=== PATIENT | male | born 1975 | race Two or more races ===

== ENCOUNTER → 2016-08-12 | Outpatient (CLI) | payer MEDICARE, MEDICAID | END | disposition home or self-care (01) | LOC: Rad HDHVI 09:10 | PROVIDERS: ATTEND Internal Medicine Cardiovascular Disease | DX: M51.37 Other intervertebral disc degeneration, lumbosacral region (principal); M47.897 Other spondylosis, lumbosacral region; M43.17 Spondylolisthesis, lumbosacral region | CPT/HCPCS: 72110 ==

== ENCOUNTER 2022-03-20 04:16 | Inpatient (IN) | payer OTHER, MEDICAID ==
[~2022-03-20] VITALS: Ht 185.4 cm; Wt 140.0 kg
[2022-03-20] MEDS ORDERED: OXYCODONE W/ ACETAMINOPHEN 5/325MG TABLET ONE (04:47)
[2022-03-20] MEDS ORDERED: OXYCODONE W/ ACETAMINOPHEN 5/325MG TABLET PO ONE (05:00)
[2022-03-20 05:27] LABS: Basophils # (auto) 0 10 ^3/uL (0-0.2); Basophils % (auto) 0.5 % (0.0-2.0); Eosinophils # (auto) 0.1 10 ^3/uL (0-0.8); Eosinophils % (auto) 0.9 % (0.0-7.0); Hematocrit 44.1 % (41.0-53.0); Hemoglobin 14.8 g/dL (13.5-17.5); Lymphocytes # (auto) 1.9 10 ^3/uL (0.4-5.4); Lymphocytes % (auto) 23.9 % (10.0-50.0); Mean Corpuscular Hgb Conc. 33.5 g/dL (32.0-36.0); Mean Corpuscular Volume 86.8 fL (80.0-100.0); Monocytes # (auto) 0.6 10 ^3/uL (0-1.3); Monocytes % (auto) 7.1 % (0.0-12.0); Neutrophils # (auto) 5.5 10 ^3/uL (1.6-8.6); Neutrophils % (auto) 67.6 % (37.0-80.0); Red Blood Cells 5.09 10^6/uL (4.5-5.90); Red Cell Distribution Width 13.4 % (11.8-14.3); White Blood Cell 8.1 10^3/uL (4.4-10.8)
[2022-03-20 05:44] LABS: Albumin 3.9 g/dL (3.4-5.0); Calcium 8.7 mg/dL (8.5-10.1); Potassium 4.1 mmol/L (3.5-5.1)
[2022-03-20 05:49] LABS: BUN/Creatinine Ratio 14.3; Bilirubin, Total 0.4 mg/dL (0.2-1.0)
[2022-03-20] MEDS ORDERED: SODIUM CHLORIDE 0.9% 1,000 ML IVB ONE (07:00)
[2022-03-20] MEDS ORDERED: SODIUM CHLORIDE 0.9% 1,000 ML IV ONE (07:00)
[2022-03-20] MEDS ORDERED: cloNIDine HCL 0.1 MG TAB PO ONE (07:30)
[2022-03-20] MEDS ORDERED: KETOROLAC TROMETH 30 MG/ML 1ML VIAL IV ONE ×2 (08:15→13:15)
[2022-03-20 10:25] LABS: Urine Bacteria NONE SEEN /hpf (None Seen); Urine Blood 3+ /uL (Negative); Urine WBC 6 /hpf (0 - 3)
[2022-03-20] MEDS ORDERED: ONDANSETRON HCL 4 MG/2 ML VIAL IV PRN (13:30)
[2022-03-20] MEDS ORDERED: DOCUSATE SOD 100 MG CAP PO PRN (13:30)
[2022-03-20] MEDS: SODIUM CHLORIDE 0.9% 1,000 ML IV SCH (16:20)
[2022-03-20] MEDS: KETOROLAC TROMETH 30 MG/ML 1ML VIAL IV PRN (19:09)
[2022-03-21] MEDS: MORPHINE SULFATE INJ 2 MG/ml SYRG IV PRN ×3 (02:14→16:31)
[2022-03-21 04:11] LABS: Basophils # (auto) 0 10 ^3/uL (0-0.2); Basophils % (auto) 0.4 % (0.0-2.0); Eosinophils # (auto) 0.1 10 ^3/uL (0-0.8); Eosinophils % (auto) 0.9 % (0.0-7.0); Hematocrit 41.4 % (41.0-53.0); Hemoglobin 13.9 g/dL (13.5-17.5); Mean Corpuscular Hemoglobin 29.1 pg (28.0-32.0); Mean Corpuscular Hgb Conc. 33.5 g/dL (32.0-36.0); Mean Corpuscular Volume 86.9 fL (80.0-100.0); Monocytes # (auto) 0.8 10 ^3/uL (0-1.3); Monocytes % (auto) 8.7 % (0.0-12.0); Neutrophils # (auto) 6.1 10 ^3/uL (1.6-8.6); Nucleated Red Blood Cells % 0.1 %; Red Blood Cells 4.76 10^6/uL (4.5-5.90); Red Cell Distribution Width 13.5 % (11.8-14.3); White Blood Cell 8.9 10^3/uL (4.4-10.8)
[2022-03-21 04:30] LABS: Potassium 3.8 mmol/L (3.5-5.1)
[2022-03-21 04:37] LABS: Albumin 3.1 g/dL (3.4-5.0); BUN/Creatinine Ratio 11.8; Calcium 8.1 mg/dL (8.5-10.1)
[2022-03-21 04:40] LABS: Bilirubin, Total 0.6 mg/dL (0.2-1.0); Total Protein 6.9 g/dL (6.4-8.2)
[2022-03-21] MEDS: SODIUM CHLORIDE 0.9% 1,000 ML IV SCH ×4 (06:10→15:55)
[2022-03-21] MEDS: KETOROLAC TROMETH 30 MG/ML 1ML VIAL IV PRN (07:35)
[2022-03-21] MEDS ORDERED: TAMSULOSIN HYDROCHLORIDE 0.4 MG CAP PO ONE (12:00)
[2022-03-21] MEDS ORDERED: cefTRIAXone 1GM/50ML D5W 50 ML IV ONE (12:00)
[2022-03-21] MEDS ORDERED: OMEP-263 PO (15:17)
[2022-03-21] MEDS ORDERED: LISI20TA28 PO (15:17)
[2022-03-21] MEDS ORDERED: TAMSULOSIN HYDROCHLORIDE 0.4 MG CAP PO SCH (18:00)
[2022-03-21] MEDS ORDERED: hydrALAZINE HCL 20 MG/ML VL IV PRN (18:30)
[2022-03-21] MEDS ORDERED: LISINOPRIL 20 MG TAB PO SCH (18:36)
[2022-03-21] MEDS ORDERED: KETOROLAC TROMETH 30 MG/ML 1ML VIAL IV ONE (19:15)
[2022-03-21 22:00] VITALS: BP 134/74
[2022-03-22 05:00] VITALS: BP 135/88
[2022-03-22] MEDS ORDERED: cefTRIAXone 1GM/50ML D5W 50 ML IV SCH (09:00)
[2022-03-22 09:07] VITALS: BP 144/89
[2022-03-22] MEDS ORDERED: LISINOPRIL 20 MG TAB PO SCH (10:00)
[2022-03-22] MEDS ORDERED: TRAM50TA2 PO (10:46)
[2022-03-22] MEDS ORDERED: TAM04C PO (10:46)
[2022-03-22] MEDS ORDERED: CIPR-173 PO (10:46)
[2022-03-22 13:18] VITALS: BP 158/95
== END 2022-03-22 14:30 | disposition home or self-care (01) | DRG 690 ==
LOC: ER 04:16 → OVERFLOW 13:27 → WEST WING 03-21 15:17
PROVIDERS: ADMIT Nurse Practitioner Family; ATTEND Nurse Practitioner Family
DX: N13.6 Pyonephrosis (principal); Z68.41 Body mass index [BMI] 40.0-44.9, adult; E66.9 Obesity, unspecified; G47.30 Sleep apnea, unspecified; I10 Essential (primary) hypertension; E86.0 Dehydration; Z20.822 Contact with and (suspected) exposure to COVID-19; Z87.891 Personal history of nicotine dependence
CPT/HCPCS: 36415; 74176; 80053; 81001; 85025; 87086; 87426; 96361; 96365; 96375; 96376; G0378; J0696; J1885

== ENCOUNTER 2022-07-11 08:10 | Inpatient (IN) | payer OTHER, MEDICAID ==
[~2022-07-11] VITALS: Ht 188 cm; Wt 143.1 kg
[~2022-07-11 08:10] MED LIST: CIPR-173 PO; LISI20TA28 PO; OMEP-263 PO; TAM04C PO; TRAM50TA2 PO
[2022-07-11] MEDS ORDERED: ONDANSETRON HCL 4 MG/2 ML VIAL IV ONE (09:15)
[2022-07-11] MEDS ORDERED: SODIUM CHLORIDE 0.9% 1,000 ML IV ONE ×2 (09:15→10:30)
[2022-07-11] MEDS ORDERED: KETOROLAC TROMETH 30 MG/ML 1ML VIAL IV ONE (09:15)
[2022-07-11 09:18] LABS: Calcium 8.8 mg/dL (8.5-10.1)
[2022-07-11 09:20] LABS: BUN/Creatinine Ratio 12.1
[2022-07-11 09:28] LABS: Basophils # (auto) 0.1 10 ^3/uL (0-0.2); Basophils % (auto) 0.9 % (0.0-2.0); Eosinophils # (auto) 0 10 ^3/uL (0-0.8); Eosinophils % (auto) 0.1 % (0.0-7.0); Hematocrit 43.8 % (41.0-53.0); Hemoglobin 14.3 g/dL (13.5-17.5); Lymphocytes # (auto) 0.8 10 ^3/uL (0.4-5.4); Lymphocytes % (auto) 7.5 % (10.0-50.0); Mean Corpuscular Hemoglobin 28.5 pg (28.0-32.0); Mean Corpuscular Hgb Conc. 32.7 g/dL (32.0-36.0); Mean Corpuscular Volume 87.2 fL (80.0-100.0); Monocytes # (auto) 0.4 10 ^3/uL (0-1.3); Monocytes % (auto) 4.4 % (0.0-12.0); Neutrophils # (auto) 8.9 10 ^3/uL (1.6-8.6); Neutrophils % (auto) 87.1 % (37.0-80.0); Nucleated Red Blood Cells % 0.1 %; Red Blood Cells 5.03 10^6/uL (4.5-5.90); Red Cell Distribution Width 13.9 % (11.8-14.3); White Blood Cell 10.2 10^3/uL (4.4-10.8)
[2022-07-11] MEDS ORDERED: TAMSULOSIN HYDROCHLORIDE 0.4 MG CAP PO ONE (10:30)
[2022-07-11 10:55] LABS: Urine Bacteria NONE SEEN /hpf (None Seen); Urine Blood Negative /uL (Negative); Urine Mucus FEW (None Seen); Urine WBC 2 /hpf (0 - 3)
[2022-07-11] MEDS ORDERED: ACETAMINOPHEN 325 MG TAB PO PRN (11:00)
[2022-07-11] MEDS ORDERED: DOCUSATE SOD 100 MG CAP PO PRN (11:00)
[2022-07-11] MEDS: SODIUM CHLORIDE 0.9% 1,000 ML IV SCH ×2 (11:00→21:43)
[2022-07-11] MEDS ORDERED: ONDANSETRON HCL 4 MG/2 ML VIAL IV PRN (11:00)
[2022-07-11] MEDS ORDERED: MORPHINE SULFATE INJ 2 MG/ml SYRG IV PRN (11:00)
[2022-07-11] MEDS ORDERED: MANNITOL FTV 25% 12.5 GM/50 ML 50 ML IV ONE (14:30)
[2022-07-11] MEDS: HYDROcodone-ACET 5/325MG TAB PO PRN (21:08)
[2022-07-11 23:43] VITALS: BP 117/65
[2022-07-12] VITALS (7 sets, daily range): BP systolic 114–134; BP diastolic 63–83
[2022-07-12 05:24] LABS: Basophils # (auto) 0 10 ^3/uL (0-0.2); Basophils % (auto) 0.6 % (0.0-2.0); Eosinophils # (auto) 0.1 10 ^3/uL (0-0.8); Eosinophils % (auto) 2.3 % (0.0-7.0); Hematocrit 37.6 % (41.0-53.0); Hemoglobin 12.9 g/dL (13.5-17.5); Lymphocytes # (auto) 2.4 10 ^3/uL (0.4-5.4); Lymphocytes % (auto) 43.2 % (10.0-50.0); Mean Corpuscular Hemoglobin 29.9 pg (28.0-32.0); Mean Corpuscular Hgb Conc. 34.2 g/dL (32.0-36.0); Mean Corpuscular Volume 87.5 fL (80.0-100.0); Monocytes # (auto) 0.5 10 ^3/uL (0-1.3); Neutrophils # (auto) 2.5 10 ^3/uL (1.6-8.6); Neutrophils % (auto) 44.9 % (37.0-80.0); Nucleated Red Blood Cells % 0.1 %; Red Blood Cells 4.29 10^6/uL (4.5-5.90); Red Cell Distribution Width 13.8 % (11.8-14.3); White Blood Cell 5.6 10^3/uL (4.4-10.8)
[2022-07-12 06:03] LABS: Albumin 2.9 g/dL (3.4-5.0); BUN/Creatinine Ratio 15.6; Bilirubin, Total 0.6 mg/dL (0.2-1.0); Calcium 8.2 mg/dL (8.5-10.1); Total Protein 6.5 g/dL (6.4-8.2)
[2022-07-12] MEDS: SODIUM CHLORIDE 0.9% 1,000 ML IV SCH ×2 (06:45→17:00)
[2022-07-12] MEDS: TAMSULOSIN HYDROCHLORIDE 0.4 MG CAP PO SCH (09:41)
[2022-07-12] MEDS: PANTOPRAZOLE 40 MG/10 ML VIAL INJ IV SCH (09:41)
[2022-07-12] MEDS: LISINOPRIL 20 MG TAB PO SCH (09:42)
[2022-07-12] MEDS: HYDROcodone-ACET 5/325MG TAB PO PRN (20:46)
[2022-07-12] MEDS ORDERED: MANNITOL FTV 25% 12.5 GM/50 ML 50 ML IV ONE (22:45)
[2022-07-13] MEDS: SODIUM CHLORIDE 0.9% 1,000 ML IV SCH ×3 (02:07→23:00)
[2022-07-13 05:00] VITALS: BP 128/78
[2022-07-13 07:43] LABS: INR 1.04 (0.9-1.15); Partial Thromboplastin Time 28.8 sec (24.6-33.4)
[2022-07-13 09:17] VITALS: BP 139/89
[2022-07-13] MEDS: TAMSULOSIN HYDROCHLORIDE 0.4 MG CAP PO SCH (09:44)
[2022-07-13] MEDS: LISINOPRIL 20 MG TAB PO SCH (09:45)
[2022-07-13] MEDS: PANTOPRAZOLE 40 MG/10 ML VIAL INJ IV SCH (09:46)
[2022-07-13] MEDS ORDERED: CIPROFLOXACIN 400MG/200ML 200 ML IV ONE (11:59)
[2022-07-13] MEDS ORDERED: MIDAZOLAM HCL 2MG/2ML 2ml VIAL (1mg/ml) ONE (12:10)
[2022-07-13] MEDS ORDERED: fentaNYL CITRATE 100 MCG/2 ML VL ONE (12:10)
[2022-07-13] MEDS ORDERED: PROPOFOL 10 MG/ML 20 ML IV ONE (13:46)
[2022-07-13 14:32] LABS: Hepatitis C Antibody Negative (Negative)
[2022-07-13] MEDS ORDERED: HYDROmorphone HCL 2 MG/ML VL/or syr IV PRN ×2 (15:15)
[2022-07-13] MEDS ORDERED: ONDANSETRON HCL 4 MG/2 ML VIAL IV PRN (15:15)
[2022-07-13 16:34] VITALS: BP 134/83
[2022-07-13 22:00] VITALS: BP 157/90
[2022-07-13] MEDS: HYDROcodone-ACET 5/325MG TAB PO PRN (22:34)
[2022-07-14 05:00] VITALS: BP 158/89
[2022-07-14 08:27] VITALS: BP 143/77
[2022-07-14] MEDS: SODIUM CHLORIDE 0.9% 1,000 ML IV SCH (09:00)
[2022-07-14] MEDS: TAMSULOSIN HYDROCHLORIDE 0.4 MG CAP PO SCH (10:12)
[2022-07-14] MEDS: LISINOPRIL 20 MG TAB PO SCH (10:12)
[2022-07-14] MEDS: PANTOPRAZOLE 40 MG/10 ML VIAL INJ IV SCH (10:13)
[2022-07-14 12:30] VITALS: BP 136/97
[2022-07-14] MEDS ORDERED: LEVO500T31 PO (12:38)
[2022-07-14 14:49] VITALS: BP 136/77
== END 2022-07-14 15:30 | disposition home or self-care (01) | DRG 694 ==
LOC: ER 08:12 → OVERFLOW 10:59 → WEST WING 22:59
PROVIDERS: ADMIT Nurse Practitioner Family; ATTEND Internal Medicine
PROC: 0TF7XZZ Fragmentation in Left Ureter, External Approach (ICD-10-PCS; principal; 2022-07-13 12:10)
DX: N13.2 Hydronephrosis with renal and ureteral calculous obstruction (principal); I10 Essential (primary) hypertension; F41.9 Anxiety disorder, unspecified; Z20.822 Contact with and (suspected) exposure to COVID-19; Z80.3 Family history of malignant neoplasm of breast; Z79.899 Other long term (current) drug therapy; Z82.49 Family history of ischemic heart disease and other diseases of the circulatory system; Z87.442 Personal history of urinary calculi
CPT/HCPCS: 36415; 74176; 80048; 80053; 81001; 85025; 85610; 85730; 86803; 86850; 86900; 86901; 87340; 87426; 94660; 96361; 96365; 96375; C9113; G0378; J1885; J2250; J2405; J2704

== ENCOUNTER 2024-04-22 13:22 | Inpatient (IN) | payer OTHER, MEDICAID ==
[~2024-04-22] VITALS: Ht 182.9 cm; Wt 136.5 kg
[~2024-04-22 13:22] MED LIST changes: -CIPR-173 PO; +LEVO500T31 PO; -LISI20TA28 PO; +LISI20TA56 PO; -OMEP-263 PO; +OMEP-448 PO; -TAM04C PO; +TAMS-35 PO
--- NOTE | 2024-04-22 13:39 | ED.PDOC ---
History of Present Illness HPI Comments 48M presents to the ER w/ no prior Hx associated to the c/c of dizziness. Pt reports that he has been very lightheaded or dizzy for the past 2 months and it has been worsening for the past week. Pt reports that earlier today the pt felt dizzy for about 15 seconds and he felt the room spinning. PMHx of HTN. Denies chills, fever, N/V/D, SOB, Dizziness now or other associated symptom's, modifiers, or recent injuries or sick contact at this time. Chief Complaint: Dizziness Time Seen by MD: 13:30 Primary Care Provider: VANESSA Reviewed Notes: Nurses Notes, Medications, Allergies Allergies: Coded Allergies: NO KNOWN ALLERGIES (Unverified , 05/11/13) Home Meds Active Scripts Levofloxacin (Levaquin) 500 Mg Tab, 500 MG PO DAILY, #7 TAB Prov:FERNANDO GOLDEN MD 07/14/22 Tamsulosin Hcl (Flomax) 0.4 Mg Cap, 1 CAP PO DAILY PRN for 15 Days, #30 CAP 11 Refills Prov:CAESAR YODER MD 03/22/22 Tramadol Hcl (Tramadol Hcl) 50 Mg Tab, 50 MG PO TID PRN, #30 TAB Prov:CAESAR YODER MD 03/22/22 Reported Medications Lisinopril (Lisinopril) 20 Mg Tab, 1 TAB PO DAILY 03/21/22 Omeprazole (Omeprazole Dr) 40 Mg Cap, 1 CAP PO DAILY 03/21/22 Information Source: Patient Mode of Arrival: Ambulatory Severity: Moderate Timing: Days Duration: Since onset, Days Prehospital treatment: None Past Medical History PAST MEDICAL HISTORY: HTN Surgical History: Denies all surgeries Family History Family History: Reviewed,noncontributory to illness, Unknown Social History Smoker: Non-Smoker Alcohol: Denies ETOH Use Drugs: Denies Drug Use Lives In: Home Constitutional: denies: chills, diaphoresis, fatigue, fever, malaise, sweats, weakness, others EENTM: denies: blurred vision, double vision, ear bleeding, ear discharge, ear drainage, ear pain, ear ringing, eye pain, eye redness, hearing loss, mouth pain, mouth swelling, nasal discharge, nose bleeding, nose congestion, nose pain, photophobia, tearing, throat pain, throat swelling, voice changes, others Respiratory: denies: cough, hemoptysis, orthopnea, SOB at rest, shortness of breath, SOB with excertion, stridor, wheezing, others Cardiovascular: denies: chest pain, dizzy spells, diaphoresis, Dyspnea on exertion, edema, irregular heart beat, left arm pain, lightheadedness, palpitations, PND, syncope, others Gastrointestinal: denies: abdomen distended, abdominal pain, blood streaked bowels, constipated, diarrhea, dysphagia, difficulty swallowing, hematemesis, melena, nausea, poor appetite, poor fluid intake, rectal bleeding, rectal pain, vomiting, others Genitourinary: denies: burning, dysuria, flank pain, frequency, hematuria, incontinence, penile discharge, penile sore, pain, testicle pain, testicle swelling, urgency, others Neurological: reports: dizziness; denies: fainting, headache, left sided numbness, left sided weakness, numbness, paresthesia, pre-existing deficit, right sided numbness, right sided weakness, seizure, speech problems, tingling, tremors, weakness, others Musculoskeletal: denies: back pain, gout, joint pain, joint swelling, muscle pain, muscle stiffness, neck pain, others Integumetry: denies: bruises, change in color, change in hair/nails, dryness, laceration, lesions, lumps, rash, wounds, others Allergic/Immunocompromised: denies: Difficulty Healing, Frequent Infections, Hives, Itching, others Hematologic/Lymphatic: denies: anemia, blood clots, easy bleeding, easy bruising, swollen glands, others Endocrine: denies: excessive hunger, excessive sweating, excessive thirst, excessive urination, flushing, intolerance to cold, intolerance to heat, unexplained weight gain, unexplained weight loss, others Psychiatric: denies: anxiety, bipolar disorder, depression, hopeless, panic disorder, schizophrenia, sleepless, suicidal, others All Other Systems: Reviewed and Negative Physical Exam Exam Comments Heart and Lungs are normal and the pt is mildly anxious General Appearance: No Apparent Distress, Normal HEENT: Normal ENT Inspection, Pharynx Normal, TMs Normal Neck: Full Range of Motion, Non-Tender, Normal, Normal Inspection Respiratory: Chest Non-Tender, Lungs Clear, No Accessory Muscle Use, No Respiratory Distress, Normal Breath Sounds Cardiovascular: No Edema, No JVD, No Murmur, No Gallop, Normal Peripheral Pulses, Regular Rate/Rhythm Breast Exam: Deferred Gastrointestinal: No Organomegaly, Non Tender, No Pulsatile Mass, Normal Bowel Sounds, Soft Genitalia: Deferred Pelvic: Deferred Rectal: Deferred Extremities: No calf tenderness, Normal capillary refill, Normal inspection, Normal range of motion, Non-tender, No pedal edema Musculoskeletal : Apperance: Normal Neurologic: Alert, steamer gum candy II-XII nml as Tested, No Motor Deficits, Normal Affect, Normal Mood, No Sensory Deficits Cerebellar Function: Normal Reflexes: Normal Skin: Dry, Normal Color, Warm Lymphatic: No Adenopathy Was a procedure done? Was a procedure done?: No Differential Dx Considerations may include: pvc, pac, afib, aflutter, heart block, sinus arrhythmias, electrolyte disorders, anxiety X-Ray, Labs, Meds, VS Vital Signs Date Time Temp Pulse Resp B/P (MAP) Pulse Ox O2 Delivery O2 Flow Rate FiO2 04/22/24 15:20 98.1 60 18 133/81 (98) 97 98.1 04/22/24 15:20 67 18 97 Room Air* 0 21 04/22/24 13:33 72 04/22/24 13:32 97.9 70 18 137/99 (112) 97 Lab Test 04/22/24 14:47 04/22/24 13:50 04/22/24 13:27 Range/Units Troponin I High Sensitivity 4 3 L </=54 ng/L White Blood Count 6.8 4.4-10.8 10^3/uL Red Blood Count 5.42 4.5-5.90 10^6/uL Hemoglobin 15.7 13.5-17.5 g/dL Hematocrit 47.2 41.0-53.0 % Mean Corpuscular Volume 87.1 80.0-100.0 fL Mean Corpuscular Hemoglobin 29.0 28.0-32.0 pg Mean Corpuscular Hemoglobin Concent 33.3 32.0-36.0 g/dL Red Cell Distribution Width 13.2 11.8-14.3 % Platelet Count 224 140-450 10^3/uL Mean Platelet Volume 8.6 6.9-10.8 fL Neutrophils (%) (Auto) 51.0 37.0-80.0 % Lymphocytes (%) (Auto) 38.8 10.0-50.0 % Monocytes (%) (Auto) 8.2 0.0-12.0 % Eosinophils (%) (Auto) 1.4 0.0-7.0 % Basophils (%) (Auto) 0.6 0.0-2.0 % Neutrophils # (Auto) 3.5 1.6-8.6 10 ^3/uL Lymphocytes # (Auto) 2.6 0.4-5.4 10 ^3/uL Monocytes # (Auto) 0.6 0-1.3 10 ^3/uL Eosinophils # (Auto) 0.1 0-0.8 10 ^3/uL Basophils # (Auto) 0 0-0.2 10 ^3/uL Nucleated Red Blood Cells 0.1 % Sodium Level 138 136-145 mmol/L Potassium Level 4.3 3.5-5.1 mmol/L Chloride Level 104 98-107 mmol/L Carbon Dioxide Level 26 20-31 mmol/L Anion Gap 8 5-15 Blood Urea Nitrogen 17 9-23 mg/dL Creatinine 1.04 0.700-1.30 mg/dL Glomerular Filtration Rate Calc 89 >90 mL/min BUN/Creatinine Ratio 16.3 10.0-20.0 Serum Glucose 88 74-106 mg/dL Calcium Level 10.2 8.7-10.4 mg/dL POC Glucose 99 70-106 mg/dl Time of 1ST Reevaluation: 14:00 Reevaluation 1ST: Unchanged (cardiac rhythm-nsr) Time of 2ND Reevaluation: 15:00 Reevaluation 2ND: Unchanged (cardiac rhythm, nsr) Patient Education/Counseling: Diagnosis, Treatment, Prognosis, Need For Follow Up Family Education/Counseling: No Family Present Additional Information - I reviewed the following notes from patient's past medical encounters:07/11/23 - The following tests were ordered, and results were reviewed by me: Labs, EKG, XY - Additional information was gathered from interviewing the following independent Historian: (Family, Other Providers, EMT) - I reviewed and agreed with the following test results read by other provider: X-ray - I discussed treatments and results with medical personnel and consultants pt reports symptoms of palpitations with lightheadedness. although we have not captured any arrhythmias, he may be having intermittent arrhythmias. i will admit him to be placed on laboratory monitor in order to capture any arrhythmias that may be causing his symptoms Departure 1 Departure Time of Disposition: 15:02 Impression: Primary Impression: Palpitations Additional Impression: Dizziness Disposition: 09 ADMITTED INPATIENT Admit to: Tele Condition: Stable Critical Care Note Critical Care Time?: No Stability Stability form required: No Heart Score Heart Score: Heart Score Response (Comments) Value History Slightly Suspicious 0 EKG Normal 0 Age 45-64 1 Risk Factors 1 or 2 risk factors 1 Troponin Normal limit 0 Total 2 I personally scribed for ANDREY ZAVALA MD ([email or web address]) on 04/22/24 at 13:39. Electronically submitted by Leonides Peralta ([email or web address]). ANDREY ZAVALA MD Apr 22, 2024 13:39
[2024-04-22 14:19] LABS: Basophils # (auto) 0 10 ^3/uL (0-0.2); Basophils % (auto) 0.6 % (0.0-2.0); Eosinophils # (auto) 0.1 10 ^3/uL (0-0.8); Eosinophils % (auto) 1.4 % (0.0-7.0); Hematocrit 47.2 % (41.0-53.0); Hemoglobin 15.7 g/dL (13.5-17.5); Lymphocytes # (auto) 2.6 10 ^3/uL (0.4-5.4); Lymphocytes % (auto) 38.8 % (10.0-50.0); Mean Corpuscular Hgb Conc. 33.3 g/dL (32.0-36.0); Mean Corpuscular Volume 87.1 fL (80.0-100.0); Monocytes # (auto) 0.6 10 ^3/uL (0-1.3); Monocytes % (auto) 8.2 % (0.0-12.0); Neutrophils # (auto) 3.5 10 ^3/uL (1.6-8.6); Nucleated Red Blood Cells % 0.1 %; Platelet Count (auto) 224 10^3/uL (140-450); Red Blood Cells 5.42 10^6/uL (4.5-5.90); Red Cell Distribution Width 13.2 % (11.8-14.3); White Blood Cell 6.8 10^3/uL (4.4-10.8)
[2024-04-22 14:25] LABS: Chloride 104 mmol/L (98-107); Potassium 4.3 mmol/L (3.5-5.1); Sodium 138 mmol/L (136-145)
[2024-04-22 14:26] LABS: Anion Gap 8 (5-15); Carbon Dioxide 26 mmol/L (20-31)
[2024-04-22 14:27] LABS: Calcium 10.2 mg/dL (8.7-10.4)
--- NOTE | 2024-04-22 14:30 | DVH ---
CHEST RADIOGRAPH Indication: palpitations Technique: Single frontal view of the chest was obtained Comparison: None FINDINGS: Lines and Tubes: None Lungs: No focal consolidation. Pleura: No effusion. No pneumothorax. Cardiomediastinal contours: Unremarkable Bones: No acute osseous abnormality. IMPRESSION: No acute cardiopulmonary disease.
[2024-04-22 14:31] LABS: Glucose 88 mg/dL (74-106)
[2024-04-22 14:32] LABS: BUN/Creatinine Ratio 16.3 (10.0-20.0); Blood Urea Nitrogen 17 mg/dL (9-23)
[2024-04-22 15:20] VITALS: PULSE 67; RESP 18; O2SAT 97
[2024-04-22] MEDS ORDERED: MORPHINE SULFATE INJ 2 MG/ml SYRG IV PRN (18:30)
[2024-04-22] MEDS ORDERED: ONDANSETRON HCL 4 MG/2 ML VIAL IV PRN (18:30)
[2024-04-22] MEDS ORDERED: DOCUSATE SOD 100 MG CAP PO PRN (18:30)
[2024-04-22] MEDS ORDERED: TEMAZEPAM 15 MG CAP PO PRN (18:30)
[2024-04-22] MEDS ORDERED: ACETAMINOPHEN 325 MG TAB PO PRN (18:30)
[2024-04-22] MEDS ORDERED: HYDROcodone-ACET 5/325MG TAB PO PRN (18:30)
[2024-04-22] MEDS ORDERED: LORazepam 0.5 MG TAB PO PRN (18:30)
[2024-04-22] MEDS ORDERED: MECLIZINE HCL 25 MG TAB PO PRN (18:30)
[2024-04-22] MEDS ORDERED: MAALOX PLUS or MAALOX 30 ML PO PRN (18:30)
[2024-04-22] MEDS ORDERED: hydrALAZINE HCL 10 MG TAB PO PRN (18:45)
--- NOTE | 2024-04-22 18:51 | DVHHP2 ---
History of Present Illness Reason for Visit: dizziness History of Present Illness 48-year-old massively morbidly obese male comes to the ED for complaints of dizziness patient states for 2 months he has been having worsening and dizziness in the last week has been even worse patient states that he has episodes of dizziness that lasts for about anywhere from 15-30 seconds that include an intense spinning sensation patient's only other past medical history is hypertension and which he takes lisinopril for managing previously took lisinopril for managing the ED recommended that the patient be for admission and continued evaluation at this point in time 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 Dyspnea, Edema, Lt Headedness, Other Gastrointestinal: No: Nausea, Vomiting, Abdominal Pain, Diarrhea, Constipation, Melena, Hematochezia, Other Genitourinary: No Dysuria, No Frequency, No Incontinence, No Hematuria, No Retention, No Other Musculoskeletal: No: other, neck pain, shoulder pain, arm pain, back pain, hand pain, leg pain, foot pain Skin: No: Rash, Lesions, Jaundice, Bruising, Other Neurological: Weakness, Incoordination; No: Numbness, Change in speech, Confusion, Seizures, Other Allergies: Coded Allergies: NO KNOWN ALLERGIES (Unverified , 05/11/13) Exam Vital Signs Vital Signs Date Time Temp Pulse Resp B/P (MAP) Pulse Ox O2 Delivery O2 Flow Rate FiO2 04/22/24 15:20 98.1 60 18 133/81 (98) 97 98.1 04/22/24 15:20 Room Air* 0 21 General Appearance: Oriented X3, mild distress HEENT: Atraumatic, PERRLA, EOMI Respiratory: Clear to auscultation, Normal air movement Cardiovascular: Regular rate, Normal S1 Abdominal: Normal bowel sounds, Soft Extremities: No clubbing, No cyanosis Skin: No rashes, No breakdown Neuro: Normal gait, Normal speech Psych/Mental Status: Mood NL Labs/Xrays Labs Test 04/22/24 14:47 04/22/24 13:50 04/22/24 13:27 Range/Units Troponin I High Sensitivity 4 </=54 ng/L White Blood Count 6.8 4.4-10.8 10^3/uL Red Blood Count 5.42 4.5-5.90 10^6/uL Hemoglobin 15.7 13.5-17.5 g/dL Hematocrit 47.2 41.0-53.0 % Mean Corpuscular Volume 87.1 80.0-100.0 fL Mean Corpuscular Hemoglobin 29.0 28.0-32.0 pg Mean Corpuscular Hemoglobin Concent 33.3 32.0-36.0 g/dL Red Cell Distribution Width 13.2 11.8-14.3 % Platelet Count 224 140-450 10^3/uL Mean Platelet Volume 8.6 6.9-10.8 fL Neutrophils (%) (Auto) 51.0 37.0-80.0 % Lymphocytes (%) (Auto) 38.8 10.0-50.0 % Monocytes (%) (Auto) 8.2 0.0-12.0 % Eosinophils (%) (Auto) 1.4 0.0-7.0 % Basophils (%) (Auto) 0.6 0.0-2.0 % Neutrophils # (Auto) 3.5 1.6-8.6 10 ^3/uL Lymphocytes # (Auto) 2.6 0.4-5.4 10 ^3/uL Monocytes # (Auto) 0.6 0-1.3 10 ^3/uL Eosinophils # (Auto) 0.1 0-0.8 10 ^3/uL Basophils # (Auto) 0 0-0.2 10 ^3/uL Nucleated Red Blood Cells 0.1 % Sodium Level 138 136-145 mmol/L Potassium Level 4.3 3.5-5.1 mmol/L Chloride Level 104 98-107 mmol/L Carbon Dioxide Level 26 20-31 mmol/L Anion Gap 8 5-15 Blood Urea Nitrogen 17 9-23 mg/dL Creatinine 1.04 0.700-1.30 mg/dL Glomerular Filtration Rate Calc 89 >90 mL/min BUN/Creatinine Ratio 16.3 10.0-20.0 Serum Glucose 88 74-106 mg/dL Calcium Level 10.2 8.7-10.4 mg/dL POC Glucose 99 70-106 mg/dl Assessment/Plan Assessment/Plan Admit to [facility] Intermittent dizziness rule out BPPV Versus acute cranial abnormality Labs evaluated normal Vitals within normal limits Recommended for admission further evaluation by the ED History of hypertension monitor blood pressure closely Continue with blood pressure medications P.r.n. BP medications if blood pressure believes higher than 160 systolic Plan discussed with: Patient My Orders Orders - MOON FENTON MD Procedure Category Date Status Time Head Without Contrast CT 04/22/24 Logged 18:29 Urinalysis LAB 04/22/24 Logged 18:29 Drug Screen LAB 04/22/24 Logged 18:29 Admit ADMIT 04/22/24 Transmitted 18:29 Code Status CODE 04/22/24 Transmitted 18:29 Vital Signs [facility] 04/22/24 In Process 18:29 Review Orders With DAILY 04/22/24 In Process Adm. 18:29 Regular Diet DIET 04/22/24 Transmitted Dinner Sodium Chloride 0.9% PHA 04/22/24 Logged 18:30 Lorazepam Tablet PHA 04/22/24 Logged (Ativan Tablet) 18:30 Alum & Mag PHA 04/22/24 Logged Hydrox-Simethicone 18:30 Docusate Sodium PHA 04/22/24 Logged Capsule (Colace 18:30 Acetaminophen Tablet PHA 04/22/24 Logged (Tylenol Tablet) 18:30 Temazepam (Restoril) PHA 04/22/24 Logged 18:30 Notify Md Of Changes [facility] 04/22/24 In Process From Base 18:29 Advance Directive [facility] 04/22/24 In Process 18:29 Basic Metabolic Panel LAB 04/23/24 Verified 04:00 Complete Blood Count LAB 04/23/24 Verified 04:00 Patient Condition ORDERS 04/22/24 Transmitted 18:29 Allergies [facility] 04/22/24 In Process 18:29 Hydrocodone-Acet PHA 04/22/24 Logged 5/325mg Tab ([place] 18:30 Ondansetron Hcl PHA 04/22/24 Logged (Zofran) 18:30 Morphine Sulfate PHA 04/22/24 Logged Injection 18:30 Notify Of Changes [facility] 04/22/24 In Process From Base 18:29 Oxygen By Nasal RT 04/22/24 Transmitted Cannula 18:29 Meclizine Tablet PHA 04/22/24 Logged (Antivert Tablet) 18:30 Hydralazine Hcl PHA 04/22/24 Logged Tablet (Apresoline 18:45 Lisinopril Tablet PHA 04/23/24 Logged (Zestril Tablet) 10:00 Problem List: (1) Dizziness (2) Palpitations (3) Essential hypertension Date of Service: Apr 22, 2024 Billing Provider: MOON FENTON MD Common Visit Codes: [id number] INP/OBS CARE (HIGH) MOON FENTON MD Apr 22, 2024 18:51
--- NOTE | 2024-04-22 20:07 | DVH ---
EXAM: CT HEAD WITHOUT CONTRAST INDICATION: dizziness TECHNIQUE: CT of the head without intravenous contrast. Radiation Dose Information: CT Dose: CTDI volume is 63.2 mGy. Dose-length product is 1139.31 mGy*cm The dose indicators for CT are the volume Computed Tomography (CT) Dose Index (CTDIvol) and the Dose Length Product (DLP), and are measured in units of mGy and mGy-cm, respectively. These indicators are not patient dose, but values generated from the CT scanner acquisition factors. The report includes radiation exposure data for exposures received during this examination. COMPARISON: CT ABD PELVIS WO CONTRAST on DOS: 07/11/22, CT ABD PELVIS WO CONTRAST on DOS: 03/20/22 FINDINGS: There is no evidence of acute intracranial hemorrhage, extra-axial collection, mass effect, midline s hift, herniation or hydrocephalus. The ventricles, sulci and cisterns are age appropriate. The bennett-white differentiation is intact. Patchy periventricular and subcortical white matter hypoattenuation is nonspecific but may be related to small vessel ischemic disease. The visualized paranasal sinuses and mastoid air cells are clear. The surrounding soft tissues and osseous structures are unremarkable. IMPRESSION: 1. NO ACUTE INTRACRANIAL HEMORRHAGE. 2. NO CT FINDINGS OF TERRITORIAL ISCHEMIA
[2024-04-22 22:34] VITALS: BP 120/76; PULSE 73; RESP 20; TEMP 97.6; O2SAT 95
[2024-04-22] MEDS: SODIUM CHLORIDE 0.9% 1,000 ML IV SCH (23:37)
[2024-04-23 01:30] VITALS: PULSE 87; RESP 18; O2SAT 96
[2024-04-23 05:02] LABS: Urine Bacteria None Seen /hpf (None Seen)
[2024-04-23 05:22] LABS: Amphetamine Screen, Urine Neg (NEGATIVE)
[2024-04-23 05:23] LABS: Cannabinoid Screen, Urine Neg (NEGATIVE)
[2024-04-23 05:26] LABS: Barbiturate Scree,Urine Neg (NEGATIVE); Benzodiazephine Screen, Urine Neg (NEGATIVE); Cocaine Screen, Urine Neg (NEGATIVE); Opiate Scree,Urine Neg (NEGATIVE); Phencyclidine Screen, Urine Neg (NEGATIVE)
[2024-04-23 05:28] LABS: Urine Blood Negative /uL (Negative); Urine Clarity Clear (Clear); Urine Color Yellow (Yellow); Urine Mucus MODERATE (None Seen); Urine Protein, UAD Negative (Negative); Urine Specific Gravity 1.029 (1.001-1.035); Urine Urobilinogen Normal (Negative); Urine WBC 6 /hpf (0 - 3)
[2024-04-23 05:40] VITALS: BP 135/72; PULSE 81; RESP 18; TEMP 97.9; O2SAT 96
[2024-04-23 07:38] LABS: Basophils # (auto) 0 10 ^3/uL (0-0.2); Basophils % (auto) 0.7 % (0.0-2.0); Eosinophils # (auto) 0.2 10 ^3/uL (0-0.8); Eosinophils % (auto) 2.7 % (0.0-7.0); Hematocrit 43.9 % (41.0-53.0); Hemoglobin 14.7 g/dL (13.5-17.5); Lymphocytes # (auto) 2.6 10 ^3/uL (0.4-5.4); Lymphocytes % (auto) 47.2 % (10.0-50.0); Mean Corpuscular Hemoglobin 29.3 pg (28.0-32.0); Mean Corpuscular Hgb Conc. 33.5 g/dL (32.0-36.0); Mean Corpuscular Volume 87.3 fL (80.0-100.0); Monocytes # (auto) 0.5 10 ^3/uL (0-1.3); Monocytes % (auto) 9.2 % (0.0-12.0); Neutrophils # (auto) 2.2 10 ^3/uL (1.6-8.6); Neutrophils % (auto) 40.2 % (37.0-80.0); Nucleated Red Blood Cells % 0.1 %; Platelet Count (auto) 195 10^3/uL (140-450); Red Blood Cells 5.03 10^6/uL (4.5-5.90); Red Cell Distribution Width 13.5 % (11.8-14.3); White Blood Cell 5.5 10^3/uL (4.4-10.8)
[2024-04-23 07:47] LABS: Chloride 105 mmol/L (98-107); Potassium 4.3 mmol/L (3.5-5.1); Sodium 139 mmol/L (136-145)
[2024-04-23 07:48] LABS: Anion Gap 8 (5-15); Calcium 9.4 mg/dL (8.7-10.4); Carbon Dioxide 26 mmol/L (20-31)
[2024-04-23 07:53] LABS: BUN/Creatinine Ratio 16.9 (10.0-20.0); Blood Urea Nitrogen 15 mg/dL (9-23); Glucose 96 mg/dL (74-106)
[2024-04-23 08:00] VITALS: PULSE 60; RESP 16
[2024-04-23] MEDS: LISINOPRIL 20 MG TAB PO SCH (09:59)
--- NOTE | 2024-04-23 11:19 | DVHPN2 ---
Subjective The patient is seen and examined at bedside. No complaint today. Reviewed: Care Plan, H&P, Labs, Medications, Previous Orders, Radiology Changes from previous H/P or p: No Changes Eyes: No Pain, No Vision change, No Conjunctivae inflammation, No Eyelid inflammation, No Other, No Redness ENT: No Ear pain, No Ear discharge, No Nose pain, No Nose discharge, No Nose congestion, No Mouth pain, No Mouth swelling, No Throat pain, No Throat swelling, No Other Cardiovascular: No Chest Pain, No Palpitations, No Orthopnea, No Paroxysmal Noc. Dyspnea, No Edema, No Lt Headedness, No Other Respiratory: No Cough, No Dry, No Shortness of breath, No SOB with excertion, No Wheezing, No Hemoptysis, No Pleuritic Pain, No Sputum, No Other Gastrointestinal: No Nausea, No Vomiting, No Abdominal Pain, No Diarrhea, No Constipation, No Melena, No Hematochezia, No Other Genitourinary: No Dysuria, No Frequency, No Incontinence, No Hematuria, No Retention, No Other Musculoskeletal: No other, No neck pain, No shoulder pain, No arm pain, No back pain, No hand pain, No leg pain, No foot pain Skin: No Rash, No Lesions, No Jaundice, No Bruising, No Other Objective Vitals Vital Signs Date Time Temp Pulse Resp B/P (MAP) Pulse Ox O2 Delivery O2 Flow Rate FiO2 04/23/24 10:00 97.8 72 16 123/70 (87) 95 97.8 04/23/24 08:00 Room Air* 0 21 General Appearance: Alert, Oriented X3, Cooperative, No acute distress HEENT: Atraumatic, PERRLA, EOMI, Mucous membr. moist/pink Neck: Supple Lungs: Clear to auscultation, Normal air movement Cardiovascular: Regular rate, Normal S1, Normal S2, No murmurs, Gallops, Rubs Abdomen: Normal bowel sounds, Soft, No tenderness Neuro: Cranial nerves 3-12 NL Psych/Mental Status: Mental status NL Medications Current Medications Medications Dose Ordered Sig/[place] Start Time Stop Time Status Last Admin Dose Admin Sodium Chloride 1,000 ml @ 100 mls/hr Q10H IV 04/22/24 18:30 04/22/24 23:37 100 MLS/HR Lorazepam 0.5 mg Q6HP PRN PO 04/22/24 18:30 Al Hydrox/Mg Hydrox/Simethicone 30 ml Q6HP PRN PO 04/22/24 18:30 Docusate Sodium 100 mg BIDPRN PRN PO 04/22/24 18:30 Acetaminophen 650 mg Q6HP PRN PO 04/22/24 18:30 Temazepam 15 mg QHSP PRN PO 04/22/24 18:30 Acetaminophen/ Hydrocodone Bitart 1 tab Q4HP PRN PO 04/22/24 18:30 Ondansetron HCl 4 mg Q4HP PRN IV 04/22/24 18:30 Morphine Sulfate 2 mg Q4HPRN PRN IV 04/22/24 18:30 Meclizine HCl 25 mg TID PRN PO 04/22/24 18:30 Hydralazine HCl 20 mg Q6HPRN PRN PO 04/22/24 18:45 Lisinopril 20 mg DAILY PO 04/23/24 10:00 04/23/24 09:59 20 MG Laboratory Results Laboratory Tests 04/23/24 07:09 Chemistry Test 04/22/24 13:50 04/23/24 07:09 Calcium Level 10.2 mg/dL (8.7-10.4) 9.4 mg/dL (8.7-10.4) Urinalysis Test 04/23/24 04:54 Urine Color Yellow (Yellow) Urine Clarity Clear (Clear) Urine pH 6.0 (5.0-9.0) Urine Specific [place] 1.029 (1.001-1.035) Urine Protein Negative (Negative) Urine Ketones Negative (Negative) Urine Blood Negative /uL (Negative) Urine Nitrite Negative (Negative) Urine Bilirubin Negative (Negative) Urine Urobilinogen Normal mg/dL (Negative) Urine Leukocyte Esterase Negative /uL (Negative) Urine RBC 1 /hpf (0 - 3) Urine WBC 6 /hpf (0 - 3) Urine Squamous Epithelial Cells Few /hpf (<5) Urine Bacteria None seen /hpf (None Seen) Urine Mucus Moderate (None Seen) Urine Glucose Normal mg/dL (Normal) Labs and/or images reviewed: Labs reviewed by me Assessment/Plan Assessment/Plan (1) Dizziness (2) Palpitations (3) Essential hypertension Plan: Continuing current management. Continuing with hypertensive medication. CT head review and normal, no acute process. 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 Discharge planning. Plan discussed with: Patient Date of Service: Apr 23, 2024 Billing Provider: FERNANDO GOLDEN MD Common Visit Codes: [id number] INP/OBS CARE(HIGH) FERNANDO GOLDEN MD Apr 23, 2024 11:19
--- NOTE | 2024-04-23 14:37 | DVHINCON2 ---
Date Seen: Apr 23, 2024 Referring Physician MD Rajani Reason for Consultation Palpitations, ST depression History of Present Illness This is a 48-year-old male who presented to the emergency room with a chief complaint of skipping heart beats. The patient reports his was diagnosed with a tachyarrhythmia in recent times and he decided to check his radial pulse once in a while finding it to skip from time to time but denies palpitations. Given his 's tachyarrhythmia, he presents to assure his heart is working well. Denies chest pain, diaphoresis, shortness of breath, dizziness, or syncopal events. He underwent a 12-lead electrocardiogram revealing a sinus rhythm suggestive of left ventricular hypertrophy and nonspecific ST segment depression to lead III and aVF. Significant medical history includes hypertension, nephrolithiasis, retinitis pigmentosa, occasional alcohol/tobacco use, and obesity. Past Medical History Past medical history reviewed. No other significant than mentioned above. Past Surgical History Past surgical history reviewed. No other significant than mentioned above. Family History: FH: breast cancer G8 MOTHER Hypertension G8 MOTHER G8 FATHER Family History Family history reviewed. Not significant for cardiovascular disease. Social History Denies the use of illicit drugs. Admits to social alcohol and tobacco use. Allergies: Coded Allergies: NO KNOWN ALLERGIES (Unverified , 05/11/13) Home Meds Active Scripts Levofloxacin (Levaquin) 500 Mg Tab, 500 MG PO DAILY, #7 TAB Prov:FERNANDO GOLDEN MD 07/14/22 Tamsulosin Hcl (Flomax) 0.4 Mg Cap, 1 CAP PO DAILY PRN for 15 Days, #30 CAP 11 Refills Prov:CAESAR YODER MD 03/22/22 Tramadol Hcl (Tramadol Hcl) 50 Mg Tab, 50 MG PO TID PRN, #30 TAB Prov:CAESAR YODER MD 03/22/22 Reported Medications Lisinopril (Lisinopril) 20 Mg Tab, 1 TAB PO DAILY 03/21/22 Omeprazole (Omeprazole Dr) 40 Mg Cap, 1 CAP PO DAILY 03/21/22 Home Meds Home medications reviewed. Current Medications Current Medications Medications (Trade) Dose Ordered Sig/Harvey Route PRN Reason Start Time Stop Time Status Last Admin Sodium Chloride 1,000 ml @ 100 mls/hr Q10H IV 04/22/24 18:30 04/22/24 23:37 Lorazepam (Ativan Tablet) 0.5 mg Q6HP PRN PO ANXIETY 04/22/24 18:30 Al Hydrox/Mg Hydrox/Simethicone (Maalox Plus) 30 ml Q6HP PRN PO FOR STOMACH DISTRESS 04/22/24 18:30 Docusate Sodium (Colace Capsule) 100 mg BIDPRN PRN PO FOR CONSTIPATION 04/22/24 18:30 Acetaminophen (Tylenol Tablet) 650 mg Q6HP PRN PO PAIN SCALE 1-3 OR TEMP>100.4 04/22/24 18:30 Temazepam (Restoril) 15 mg QHSP PRN PO FOR INSOMNIA 04/22/24 18:30 Acetaminophen/ Hydrocodone Bitart ([place] 5/325MG Tab) 1 tab Q4HP PRN PO MODERATE PAIN (4-6 PAIN SCALE) 04/22/24 18:30 Ondansetron HCl (Zofran) 4 mg Q4HP PRN IV NAUSEA / VOMITING 04/22/24 18:30 Morphine Sulfate 2 mg Q4HPRN PRN IV SEVERE PAIN (7-10 PAIN SCALE) 04/22/24 18:30 Meclizine HCl (Antivert Tablet) 25 mg TID PRN PO DIZZINESS 04/22/24 18:30 Hydralazine HCl (Apresoline Tablet) 20 mg Q6HPRN PRN PO SBP>160 or DBP>105 04/22/24 18:45 Lisinopril (Zestril Tablet) 20 mg DAILY PO 04/23/24 10:00 04/23/24 09:59 Review of Systems Constitutional: No symptom reported Ears, Nose, & Throat: No symptom reported Eyes: No symptom reported Neurological: No symptoms reported Pulmonary/Respiratory: No symptom reported Cardiovascular: No symptom reported Gastrointestinal: No symptom reported Genitourinary: No symptom reported Musculoskeletal: No symptom reported Skin: No symptom reported Psychiatric: No symptom reported Endocrine: No symptom reported Hemotologic/Lymphatic: No symptom reported Vital Signs Vital Signs Date Time Temp Pulse Resp B/P (MAP) Pulse Ox O2 Delivery O2 Flow Rate FiO2 04/23/24 14:00 97.9 71 16 123/67 (85) 94 97.9 04/23/24 08:00 Room Air* 0 21 Physical Exam General Appearance: Cooperative. Well developed. Obese. In no acute distress Head Exam: Normal inspection Neck Exam: Normal inspection. Non-tender. Normal alignment Pulmonary/Respiratory: Chest non-tender. Clear bilateral breath sounds Cardiovascular/Chest: Regular rate and rhythm. S1, S2. Sinus rhythm suggestive of LVH and ST segment depression to lead III and aVF. No murmurs. No JVD. Peripheral Pulses: 2+ Radial (R). 2+ Radial (L). 2+ Pedal (R). 2+ Pedal (L) Abdominal Exam: Normal bowel sounds. Soft. Nontender. No hepatospenomegaly. N o masses Ankle Exam: Negative ankle edema Lower extremities: Negative lower extremity edema Neuro/Mental Status: A&O x4. Coherent Thoughts/Psych: Normal thought pattern. Appropriate mood and affect. Good judgement and insight Appearance: In no acute distress Skin Exam: Normal inspection. Normal color. Warm. Dry Labs/Diagnostic Data Labs Test 04/23/24 07:09 04/23/24 04:54 04/22/24 14:47 04/22/24 13:27 Range/Units White Blood Count 5.5 4.4-10.8 10^3/uL Red Blood Count 5.03 4.5-5.90 10^6/uL Hemoglobin 14.7 13.5-17.5 g/dL Hematocrit 43.9 41.0-53.0 % Mean Corpuscular Volume 87.3 80.0-100.0 fL Mean Corpuscular Hemoglobin 29.3 28.0-32.0 pg Mean Corpuscular Hemoglobin Concent 33.5 32.0-36.0 g/dL Red Cell Distribution Width 13.5 11.8-14.3 % Platelet Count 195 140-450 10^3/uL Mean Platelet Volume 8.4 6.9-10.8 fL Neutrophils (%) (Auto) 40.2 37.0-80.0 % Lymphocytes (%) (Auto) 47.2 10.0-50.0 % Monocytes (%) (Auto) 9.2 0.0-12.0 % Eosinophils (%) (Auto) 2.7 0.0-7.0 % Basophils (%) (Auto) 0.7 0.0-2.0 % Neutrophils # (Auto) 2.2 1.6-8.6 10 ^3/uL Lymphocytes # (Auto) 2.6 0.4-5.4 10 ^3/uL Monocytes # (Auto) 0.5 0-1.3 10 ^3/uL Eosinophils # (Auto) 0.2 0-0.8 10 ^3/uL Basophils # (Auto) 0 0-0.2 10 ^3/uL Nucleated Red Blood Cells 0.1 % Sodium Level 139 136-145 mmol/L Potassium Level 4.3 3.5-5.1 mmol/L Chloride Level 105 98-107 mmol/L Carbon Dioxide Level 26 20-31 mmol/L Anion Gap 8 5-15 Blood Urea Nitrogen 15 9-23 mg/dL Creatinine 0.89 0.700-1.30 mg/dL Glomerular Filtration Rate Calc 106 >90 mL/min BUN/Creatinine Ratio 16.9 10.0-20.0 Serum Glucose 96 74-106 mg/dL Calcium Level 9.4 8.7-10.4 mg/dL Urine Color Yellow Yellow Urine Clarity Clear Clear Urine pH 6.0 5.0-9.0 Urine Specific [place] 1.029 1.001-1.035 Urine Protein Negative Negative Urine Ketones Negative Negative Urine Blood Negative Negative /uL Urine Nitrite Negative Negative Urine Bilirubin Negative Negative Urine Urobilinogen Normal Negative mg/dL Urine Leukocyte Esterase Negative Negative /uL Urine RBC 1 0 - 3 /hpf Urine WBC 6 0 - 3 /hpf Urine Squamous Epithelial Cells Few <5 /hpf Urine Bacteria None seen None Seen /hpf Urine Mucus Moderate None Seen Urine Glucose Normal Normal mg/dL Urine Opiates Screen Neg NEGATIVE Urine Fentanyl Screen Neg NEGATIVE Urine Barbiturates Screen Neg NEGATIVE Urine Phencyclidine Screen Neg NEGATIVE Urine Amphetamines Screen Neg NEGATIVE Urine Benzodiazepines Screen Neg NEGATIVE Urine Cocaine Screen Neg NEGATIVE Urine Cannabinoids Screen Neg NEGATIVE Troponin I High Sensitivity 4 </=54 ng/L POC Glucose 99 70-106 mg/dl Assessment Hypertension Rule out structural heart disease Obesity Plan/Recommendation (Dr. Yu) The patient presents with complains of his radial pulse skipping beats when checked but no palpitations. He also denies dizziness, syncope, chest pain, or SOB. He is worried about his findings as his was diagnosed with a tachyarrhythmia. We will continue further cardiac evaluation with a transthoracic echocardiogram to rule out structural heart disease as his 12-lead electrocardiogram is suggestive of left ventricular hypertrophy and ST-segment depression to leads III and aVF. In the setting of an unremarkable echocardiogram, there is no further cardiac work-up indicated. Thank you for allowing us to participate in this patient's care. Please call if you have any questions or concerns. This medical document was created using an electronic medical record system with voice recognition software and computerized dictation system. Although this document has been carefully reviewed, there might still be some phonetic and typographical errors. Occasional wrong-word or ``sound-alike substitutions may have occurred due to the inherent limitations of voice recognition software. These areas are purely typographical due to imperfections of the software programs and do not reflect any compromise in the patient's medical care. Please read the chart carefully and recognize, using context, where these substitutions have occurred. Plan discussed with: Patient, Other Date of Service: Apr 23, 2024 Billing Provider: DAFNE KERN MD Cardiology Common Codes: [id number] INP/OBS CARE (High) TAMIA BOYKIN [facility] Apr 23, 2024 14:37
[2024-04-24 01:00] VITALS: BP 118/69; PULSE 60; RESP 20; TEMP 97.1; O2SAT 95
[2024-04-24 04:00] VITALS: BP 118/69; PULSE 66; RESP 18; TEMP 97.5; O2SAT 96
[2024-04-24 09:49] VITALS: BP 124/73; PULSE 96; TEMP 98.7; O2SAT 96
--- NOTE | 2024-04-24 11:01 | DVHDS2 ---
Discharge Summary Date of Admission Apr 22, 2024 at 18:29 Date of Discharge: Apr 24, 2024 Admitting Diagnosis Dizziness Labs/Diagnostic Data: Laboratory Results Test 04/23/24 16:50 04/23/24 07:09 04/23/24 04:54 04/22/24 14:47 POC Glucose 104 mg/dl (70-106) White Blood Count 5.5 10^3/uL (4.4-10.8) Red Blood Count 5.03 10^6/uL (4.5-5.90) Hemoglobin 14.7 g/dL (13.5-17.5) Hematocrit 43.9 % (41.0-53.0) Mean Corpuscular Volume 87.3 fL (80.0-100.0) Mean Corpuscular Hemoglobin 29.3 pg (28.0-32.0) Mean Corpuscular Hemoglobin Concent 33.5 g/dL (32.0-36.0) Red Cell Distribution Width 13.5 % (11.8-14.3) Platelet Count 195 10^3/uL (140-450) Mean Platelet Volume 8.4 fL (6.9-10.8) Neutrophils (%) (Auto) 40.2 % (37.0-80.0) Lymphocytes (%) (Auto) 47.2 % (10.0-50.0) Monocytes (%) (Auto) 9.2 % (0.0-12.0) Eosinophils (%) (Auto) 2.7 % (0.0-7.0) Basophils (%) (Auto) 0.7 % (0.0-2.0) Neutrophils # (Auto) 2.2 10 ^3/uL (1.6-8.6) Lymphocytes # (Auto) 2.6 10 ^3/uL (0.4-5.4) Monocytes # (Auto) 0.5 10 ^3/uL (0-1.3) Eosinophils # (Auto) 0.2 10 ^3/uL (0-0.8) Basophils # (Auto) 0 10 ^3/uL (0-0.2) Nucleated Red Blood Cells 0.1 % Sodium Level 139 mmol/L (136-145) Potassium Level 4.3 mmol/L (3.5-5.1) Chloride Level 105 mmol/L (98-107) Carbon Dioxide Level 26 mmol/L (20-31) Anion Gap 8 (5-15) Blood Urea Nitrogen 15 mg/dL (9-23) Creatinine 0.89 mg/dL (0.700-1.30) Glomerular Filtration Rate Calc 106 mL/min (>90) BUN/Creatinine Ratio 16.9 (10.0-20.0) Serum Glucose 96 mg/dL (74-106) Hemoglobin A1c 5.9 % A1C (<5.7) Calcium Level 9.4 mg/dL (8.7-10.4) Magnesium Level 2.0 mg/dL (1.6-2.6) B-Type Natriuretic Peptide 1.36 pg/mL (0-100) Triglycerides Level 97 mg/dL (< 150) Cholesterol Level 164 mg/dL (< 200) LDL Cholesterol 111 mg/dL (< 100) HDL Cholesterol 45 mg/dL (40-59) Thyroid Stimulating Hormone (TSH) 1.12 uIU/mL (0.55-4.78) Urine Color Yellow (Yellow) Urine Clarity Clear (Clear) Urine pH 6.0 (5.0-9.0) Urine Specific [place] 1.029 (1.001-1.035) Urine Protein Negative (Negative) Urine Ketones Negative (Negative) Urine Blood Negative /uL (Negative) Urine Nitrite Negative (Negative) Urine Bilirubin Negative (Negative) Urine Urobilinogen Normal mg/dL (Negative) Urine Leukocyte Esterase Negative /uL (Negative) Urine RBC 1 /hpf (0 - 3) Urine WBC 6 /hpf (0 - 3) Urine Squamous Epithelial Cells Few /hpf (<5) Urine Bacteria None seen /hpf (None Seen) Urine Mucus Moderate (None Seen) Urine Glucose Normal mg/dL (Normal) Urine Opiates Screen Neg (NEGATIVE) Urine Fentanyl Screen Neg (NEGATIVE) Urine Barbiturates Screen Neg (NEGATIVE) Urine Phencyclidine Screen Neg (NEGATIVE) Urine Amphetamines Screen Neg (NEGATIVE) Urine Benzodiazepines Screen Neg (NEGATIVE) Urine Cocaine Screen Neg (NEGATIVE) Urine Cannabinoids Screen Neg (NEGATIVE) Troponin I High Sensitivity 4 ng/L (</=54) Other Laboratory Tests 04/23/24 07:09 Brief Hx & Hospital Course: 48-year-old obese male with history of written this pigmentosa admitted for dizziness. Or sudden negative, place on telemetry, seen by Cardiology and cleared. On my physical exam, patient with consistent nystagmus, decreased visual acuity in bilateral eyes. Patient was able to ambulate slowly, reported dizziness this has been going on for years according to patient. However since his recently had cardiac issues, has been more aware of this, although he did not notice any changes. Patient will be discharged with Neurology follow up, he will benefit from vestibular rehabilitation, as his dizziness is likely come from ocular vestibular dysfunction. 15 minutes spent discussing regarding lifestyle, dietary and exercise changes to modify disease process and improve quality of life Condition at Discharge: Good Final Diagnosis/Problems List Oculovestibular dysfunction Discharge Disposition: Home Discharge Instruct/Medications Diet: Consistent carbohydrate, Cardiac 2g Na,low cholest Activity: No Restrictions, As Tolerated Follow Up/Referral: Referral for outpatient neurology Patient will benefit from vestibular rehabilitation Medications: N/A 45 Discharge Statement: "Patient was advised to return to the ER or call 911 if any headaches, dizziness, shortness of breath, chest pain, abdominal pain, bleeding, fevers, or worsening of medical condition. Patient was counseled about treatment plan, medications, possible side effects, patientverbalized understanding. All questions were answered to the best of my ability. This discharge took greater then 30 minutes in planning, reviewing documentation, counseling the patient, and discussing with other team members." ASSESSMENT ASSESSMENT Assessment Oculovestibular dysfunction Retinitis pigmentosa Obesity Hypertension Date of Service: Apr 24, 2024 Billing Provider: NORMA HAIRSTON MD Common Visit Codes: 72301-KBZ/OBS DISCH DAY >30min Secondary Visit Codes: [id number] COUNSELING IND NORMA HAIRSTON MD Apr 24, 2024 11:01
--- NOTE | 2024-04-24 11:17 | ECG ---
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
== END 2024-04-24 12:15 | disposition home or self-care (01) | DRG 149 ==
LOC: ER 13:22 → OVERFLOW 18:29
PROVIDERS: ADMIT Hospitalist; ATTEND Student in an Organized Health Care Education/Training Program
DX: R42 Dizziness and giddiness (principal); Z68.41 Body mass index [BMI] 40.0-44.9, adult; R00.2 Palpitations; I10 Essential (primary) hypertension; H55.00 Unspecified nystagmus; H35.52 Pigmentary retinal dystrophy; Z87.442 Personal history of urinary calculi; Z82.49 Family history of ischemic heart disease and other diseases of the circulatory system; Z80.3 Family history of malignant neoplasm of breast
CPT/HCPCS: 36415; 70450; 71045; 80048; 80061; 80307; 81001; 82962; 83036; 83735; 83880; 84443; 84484; 85025; 93005; G0378